=== PATIENT | male | born 1940 | race African-American/Black ===

== ENCOUNTER 2024-02-13 09:05 | Emergency (ER) | payer MEDICARE ==
[2024-02-13 09:59] LABS: #Basophils Less than 0.03 10x3/uL (0.0-0.2); %Basophils 0.3 % (0.0-1.0); %Eosinophils 4.1 % (0.0-10.0); %Lymphocytes 18.9 % (21.0-51.0); %Monocytes 8.1 % (0.0-10.0); %Neutrophils 68.3 % (42.0-75.0); Hematocrit 35.8 % (42.0-52.0); Hemoglobin 12.1 g/dL (14.0-18.0); Mean Corpuscular HGB CONC 33.8 g/dL (32.0-36.0); Mean Corpuscular Hemoglobin 30.5 pg (27.0-31.0); Mean Corpuscular Volume 90.2 fL (78.0-98.0); Mean Platelet Volume 8.6 fL (7.4-10.4); Platelet Count 192 10x3/uL (130-400); RBC Distribution Width 13.4 % (11.5-14.5); Red Blood Cell (RBC) Count 3.97 mill/uL (4.70-6.10)
[2024-02-13 10:09] LABS: ALT (SGPT) 15 U/L (8-55); AST (SGOT) 22 U/L (5-34); Albumin 2.9 g/dL (3.4-4.8); Alkaline Phosphatase 88 U/L (40-110); Anion Gap 14 mmol/L (10-20); BUN (Urea Nitrogen) 37 mg/dL (8.4-25.7); Bilirubin, Total 0.4 mg/dL (0.2-1.2); Calc. Creatinine Clearance 0 mL/min (70-130); Calcium 8.8 mg/dL (7.8-10.44); Carbon Dioxide 21 mmol/L (23-31); Chloride 107 mmol/L (98-107); Estimated GFR 26; Globulin 3.5 g/dL (2.4-3.5); Glucose 106 mg/dL (83-110); Potassium 4.7 mmol/L (3.5-5.1); Protein, Total 6.4 g/dL (5.8-8.1); Sodium 137 mmol/L (136-145)
[2024-02-13 10:13] LABS: Prothrombin Time 13.1 sec (12.0-14.7)
[2024-02-13 10:14] LABS: PTT 31.4 sec (22.9-36.1)
[2024-02-13 11:12] LABS: Troponin I 0.015 ng/mL (< 0.028)
== END 2024-02-13 11:34 | disposition home or self-care (01) ==
LOC: ERS 09:05
DX: S00.03XA Contusion of scalp, initial encounter (principal); I12.9 Hypertensive chronic kidney disease with stage 1 through stage 4 chronic kidney disease, or unspecified chronic kidney disease; N18.9 Chronic kidney disease, unspecified; Z87.891 Personal history of nicotine dependence; W19.XXXA Unspecified fall, initial encounter
CPT/HCPCS: 70450; 71045; 72125; 80053; 84484; 85025; 85610; 85730

== ENCOUNTER 2024-10-20 11:48 | Inpatient (IN) | payer MEDICARE ==
[2024-10-20 13:43] LABS: #Basophils 0.03 10x3/uL (0.0-0.2); %Basophils 0.6 % (0.0-1.0); %Eosinophils 1.1 % (0.0-10.0); %Lymphocytes 16.1 % (21.0-51.0); Hematocrit 36.9 % (42.0-52.0); Hemoglobin 11.6 g/dL (14.0-18.0); Mean Corpuscular HGB CONC 31.4 g/dL (32.0-36.0); Mean Corpuscular Hemoglobin 29.7 pg (27.0-31.0); Mean Corpuscular Volume 94.6 fL (78.0-98.0); Mean Platelet Volume 8.9 fL (7.4-10.4); Platelet Count 199 10x3/uL (130-400); RBC Distribution Width 15.9 % (11.5-14.5)
[2024-10-20 14:09] LABS: ALT (SGPT) 13 U/L (Less than 45); AST (SGOT) 19 U/L (11-34); Albumin 3.1 g/dL (3.1-4.5); Alkaline Phosphatase 90 U/L (40-110); Anion Gap 15 mmol/L (10-20); BUN (Urea Nitrogen) 49 mg/dL (8.4-25.7); Bilirubin, Total 0.4 mg/dL (0.3-1.2); Calc. Creatinine Clearance 0 mL/min (70-130); Calcium 9.1 mg/dL (7.8-10.44); Carbon Dioxide 19 mmol/L (23-31); Chloride 109 mmol/L (98-107); Estimated GFR 18; Globulin 3.7 g/dL (2.4-3.5); Glucose 99 mg/dL (83-110); Potassium 5.2 mmol/L (3.5-5.1); Protein, Total 6.8 g/dL (5.8-8.1); Sodium 138 mmol/L (136-145)
[2024-10-20] MEDS ORDERED: cefTRIAXone (ROCEPHIN) 2 GM VIAL ONE ×2 (14:57→14:59)
[2024-10-20] MEDS ORDERED: predniSONE 20 MG TAB ONE (14:57)
[2024-10-20] MEDS ORDERED: Magnesium 2 GM/50 ML BAG (IN WATER) ONE (14:57)
[2024-10-20] MEDS ORDERED: Azithromycin 500 MG VIAL ONE (14:58)
[2024-10-20] MEDS ORDERED: Ondansetron PF 4 MG/2 ML Vial IVP PRN (15:30)
[2024-10-20] MEDS ORDERED: Ondansetron ODT 4 MG TAB SL PRN (15:30)
[2024-10-20] MEDS ORDERED: Ipratropium/Albuterol 3 ML NEB ONE (16:16)
[2024-10-20] MEDS ORDERED: Furosemide 20 MG (2 mL) VIAL ONE (16:37)
[2024-10-20 16:59] LABS: Troponin I 0.062 ng/mL (< 0.028)
[2024-10-20] MEDS ORDERED: Senokot S 8.6-50 MG TAB PO PRN (17:06)
[2024-10-20] MEDS ORDERED: Acetaminophen 325 MG TAB PO PRN (17:06)
[2024-10-20] MEDS ORDERED: Calcium Carbonate 500 MG ChewTAB PO PRN (17:06)
[2024-10-20] MEDS ORDERED: Guaifenesin DM 100-10/5 ML UDCUP PO PRN (17:11)
[2024-10-20] MEDS ORDERED: predniSONE 20 MG TAB PO SCH (17:15)
[2024-10-20 18:28] VITALS: BMI 28.7
[2024-10-20 19:27] LABS: Troponin I 0.048 ng/mL (< 0.028)
[2024-10-20] MEDS: guaiFENesin ER 600 MG TAB PO SCH (20:15)
[2024-10-20] MEDS: Doxycycline 100 MG CAP PO SCH (20:15)
[2024-10-20] MEDS: Famotidine 20 MG TAB PO SCH (20:15)
[2024-10-20] MEDS: Clopidogrel Bisulfate 75 MG TAB PO SCH (20:15)
[2024-10-20] MEDS: Cefepime 1 GM in Sodium Chloride 0.9% 100 ML IVPB SCH (20:15)
[2024-10-20] MEDS: Heparin 5,000 UNITS/ML VIAL SC SCH (20:16)
[2024-10-20] MEDS: dilTIAZem CD 240 MG CAP PO SCH (20:16)
[2024-10-20] MEDS: Sodium Bicarbonate Tab 325 MG TAB PO SCH (20:16)
[2024-10-20] MEDS: DorzolamidE/Timolol 2%/0.5% Ophth Soln 10 ml Bottle EA EYE SCH (22:37)
[2024-10-20 22:59] LABS: Troponin I 0.052 ng/mL (< 0.028)
[2024-10-21 04:37] LABS: #Basophils Less than 0.03 10x3/uL (0.0-0.2); #Eosinophils Less than 0.03 10x3/uL (0.0-0.7); %Monocytes 2.3 % (0.0-10.0); %Neutrophils 84.4 % (42.0-75.0); Hemoglobin 10.7 g/dL (14.0-18.0); Mean Corpuscular HGB CONC 33.4 g/dL (32.0-36.0); Mean Corpuscular Hemoglobin 29.9 pg (27.0-31.0); Mean Corpuscular Volume 89.4 fL (78.0-98.0); Mean Platelet Volume 8.8 fL (7.4-10.4); Platelet Count 207 10x3/uL (130-400); RBC Distribution Width 15.7 % (11.5-14.5); Red Blood Cell (RBC) Count 3.58 mill/uL (4.70-6.10)
[2024-10-21 04:57] LABS: Anion Gap 16 mmol/L (10-20); BUN (Urea Nitrogen) 53 mg/dL (8.4-25.7); Calc. Creatinine Clearance 16 mL/min (70-130); Calcium 8.9 mg/dL (7.8-10.44); Carbon Dioxide 20 mmol/L (23-31); Chloride 109 mmol/L (98-107); Estimated GFR 17; Glucose 131 mg/dL (83-110); Magnesium 2.3 mg/dL (1.6-2.6); Potassium 5.8 mmol/L (3.5-5.1); Sodium 139 mmol/L (136-145)
[2024-10-21] MEDS: Furosemide 20 MG (2 mL) VIAL SLOW IVP SCH (05:25)
[2024-10-21] MEDS: LOKELMA 10 GM PACKET PO SCH (05:25)
[2024-10-21] MEDS: Calcium Gluc 4.6 MEQ/10 ML (100 MG/ML) SLOW IVP SCH (05:25)
[2024-10-21] MEDS: predniSONE 20 MG TAB PO SCH (09:03)
[2024-10-21] MEDS: Folic Acid/Vit B Comp W-C PO SCH (09:03)
[2024-10-21] MEDS ORDERED: Sodium Chloride 0.9% 100 ML BAG IVPB PRN (22:45)
[2024-10-21] MEDS: Tuberculin PPD 0.1 ML SYRINGE (10 TEST VIAL) I-DERMAL SCH (23:19)
[2024-10-22 07:33] LABS: HBSAB Concentration Less than 8.00 mIU/mL; Hep B Core Total Ab NONREACTIVE (NonReactive); Hep B Core Total Index 0.15 S/CO (0-0.79); Hep B Surf AB NONREACTIVE (NonReactive); Hep B Surf Ag NONREACTIVE S/CO (NonReactive)
[2024-10-22 08:10] LABS: #Basophils Less than 0.03 10x3/uL (0.0-0.2); #Eosinophils Less than 0.03 10x3/uL (0.0-0.7); %Monocytes 5.5 % (0.0-10.0); %Neutrophils 83.2 % (42.0-75.0); Hematocrit 37.5 % (42.0-52.0); Hemoglobin 12.1 g/dL (14.0-18.0); Mean Corpuscular HGB CONC 32.3 g/dL (32.0-36.0); Mean Corpuscular Volume 89.9 fL (78.0-98.0); Mean Platelet Volume 9.3 fL (7.4-10.4); Platelet Count 312 10x3/uL (130-400); RBC Distribution Width 15.7 % (11.5-14.5); Red Blood Cell (RBC) Count 4.17 mill/uL (4.70-6.10)
[2024-10-22] MEDS: Furosemide 40 MG (4 mL) VIAL SLOW IVP SCH (08:16)
[2024-10-22] MEDS: hydrALAZINE 25 MG TAB PO SCH (08:17)
[2024-10-22] MEDS: Ipratropium/Albuterol 3 ML NEB ONE (08:30)
[2024-10-22 08:31] LABS: Anion Gap 17 mmol/L (10-20); BUN (Urea Nitrogen) 67 mg/dL (8.4-25.7); Calc. Creatinine Clearance 16 mL/min (70-130); Calcium 9.3 mg/dL (7.8-10.44); Carbon Dioxide 18 mmol/L (23-31); Chloride 107 mmol/L (98-107); Estimated GFR 17; Glucose 144 mg/dL (83-110); Potassium 4.9 mmol/L (3.5-5.1); Sodium 137 mmol/L (136-145)
[2024-10-22] MEDS ORDERED: fentaNYL 50 mcg/mL 1 mL Vial ONE (09:04)
[2024-10-22] MEDS ORDERED: PROPOFOL 0 ML ONE (09:04)
[2024-10-22] MEDS ORDERED: Lidocaine 2% PF 5 ML VIAL ONE (09:06)
[2024-10-22] MEDS ORDERED: EPINEPHrine 1 MG/ML VIAL ONE (09:06)
[2024-10-22] MEDS ORDERED: Ondansetron PF 4 MG/2 ML Vial ONE (09:06)
[2024-10-22] MEDS ORDERED: Lidocaine 1% PF 5 ML VIAL ONE (09:06)
[2024-10-22] MEDS ORDERED: Bupivacaine PF 0.5% 30 ML VIAL ONE (09:07)
[2024-10-22] MEDS ORDERED: Ipratropium/Albuterol 3 ML NEB ONE (09:34)
[2024-10-22] MEDS ORDERED: Heparin 10,000 UNITS/ 10 ML VIAL ONE ×2 (09:37→11:09)
[2024-10-22] MEDS ORDERED: Midazolam HCl 2 mg/2 ml Vial ONE (09:46)
[2024-10-22] MEDS ORDERED: CEFAZOLIN 2 GM VIAL ONE (10:11)
[2024-10-23 00:39] LABS: HBsAg Index 0.29 S/CO (0-0.99); Hep B Core Total Ab NONREACTIVE (NonReactive); Hep B Core Total Index 0.17 S/CO (0-0.79); Hep B Surf Ag NONREACTIVE S/CO (NonReactive)
[2024-10-23 00:40] LABS: HBSAB Concentration Less than 8.00 mIU/mL; Hep B Surf AB NONREACTIVE (NonReactive); Hep C IgG Ab NONREACTIVE S/CO (NonReactive); Hep C Index 0.12 S/CO (0-0.79)
[2024-10-23 06:13] LABS: Hepatitis B little e Antigen Negative (Negative)
[2024-10-23 07:15] LABS: Hep B Surface AG-Rflx Sendout Negative (Negative); Hepatitis B Core Total Negative (Negative); Hepatitis B Surface AB-Sendout Non Reactive (.)
[2024-10-23 11:25] LABS: #Basophils Less than 0.03 10x3/uL (0.0-0.2); #Eosinophils Less than 0.03 10x3/uL (0.0-0.7); %Basophils 0.1 % (0.0-1.0); %Monocytes 9.2 % (0.0-10.0); %Neutrophils 84.4 % (42.0-75.0); Hematocrit 30.7 % (42.0-52.0); Hemoglobin 10.4 g/dL (14.0-18.0); Mean Corpuscular HGB CONC 33.9 g/dL (32.0-36.0); Mean Corpuscular Hemoglobin 29.5 pg (27.0-31.0); Mean Corpuscular Volume 87.2 fL (78.0-98.0); Mean Platelet Volume 9.3 fL (7.4-10.4); Platelet Count 200 10x3/uL (130-400); RBC Distribution Width 15.6 % (11.5-14.5); Red Blood Cell (RBC) Count 3.52 mill/uL (4.70-6.10)
[2024-10-23] MEDS ORDERED: Heparin 10,000 UNITS/ 10 ML VIAL ONE (11:26)
[2024-10-23 11:41] LABS: Anion Gap 15 mmol/L (10-20); BUN (Urea Nitrogen) 43 mg/dL (8.4-25.7); Calc. Creatinine Clearance 22 mL/min (70-130); Carbon Dioxide 25 mmol/L (23-31); Chloride 106 mmol/L (98-107); Estimated GFR 24; Glucose 106 mg/dL (83-110); Potassium 3.9 mmol/L (3.5-5.1); Sodium 142 mmol/L (136-145)
[2024-10-23] MEDS: Ipratropium/Albuterol 3 ML NEB NEB SCH (12:28)
[2024-10-23] MEDS: FLU (Fluad Triv) TS24-25 (65UP)/MF59C/PF 45 MCG/0.5 ML Syringe IM ONE (21:27)
[2024-10-23] MEDS: READ PPD TEST SITE PO SCH (22:04)
[2024-10-24] MEDS ORDERED: Heparin 10,000 UNITS/ 10 ML VIAL ONE (11:37)
[2024-10-24] MEDS: READ PPD TEST SITE PO SCH (22:38)
[2024-10-25] MEDS: Cefdinir 300 MG CAP PO SCH (09:37)
[2024-10-25] MEDS: predniSONE 20 MG TAB PO SCH (09:37)
[2024-10-25 10:37] VITALS: BP 169/70; TEMP 98.9
[2024-10-25 13:12] LABS: Hepatitis B little e Antibody Non Reactive (Negative)
== END 2024-10-25 11:46 | disposition home or self-care (01) | DRG 196 ==
LOC: ERS 11:48 → OBS 15:30 → OBSVTOIN 10-21 09:09
PROVIDERS: ADMIT Internal Medicine; ATTEND Internal Medicine
PROC: 0JH60XZ Insertion of Tunneled Vascular Access Device into Chest Subcutaneous Tissue and Fascia, Open Approach (ICD-10-PCS; principal; 2024-10-22)
PROC: 02HV33Z Insertion of Infusion Device into Superior Vena Cava, Percutaneous Approach (ICD-10-PCS; 2024-10-22)
PROC: 3E033XZ Introduction of Vasopressor into Peripheral Vein, Percutaneous Approach (ICD-10-PCS; 2024-10-22)
DX: J84.9 Interstitial pulmonary disease, unspecified (principal); I21.A1 Myocardial infarction type 2; I50.33 Acute on chronic diastolic (congestive) heart failure; N18.6 End stage renal disease; E87.20 Acidosis, unspecified; N17.9 Acute kidney failure, unspecified; I13.2 Hypertensive heart and chronic kidney disease with heart failure and with stage 5 chronic kidney disease, or end stage renal disease; J44.1 Chronic obstructive pulmonary disease with (acute) exacerbation; I73.9 Peripheral vascular disease, unspecified; D63.1 Anemia in chronic kidney disease; Z79.899 Other long term (current) drug therapy; Z98.49 Cataract extraction status, unspecified eye; Z98.890 Other specified postprocedural states; Z87.891 Personal history of nicotine dependence; Z99.2 Dependence on renal dialysis
CPT/HCPCS: 36415; 71045; 80048; 80053; 83735; 83880; 84484; 85025; 86580; 86704; 86706; 86707; 86803; 87340; 87350; 87428; 87633; 90653; 93005; 93306; 94640; 96372; 96374; 96375; 96376; A6258; C1750; C1751; G0378; J0171; J0456; J0612; J0665; J0692; J0696; J1642; J1644; J1940; J2250; J2405; J2704; J3010; J3475; J7512; J7620